=== PATIENT | male | born 1995 | race Two or more races ===

== ENCOUNTER 2019-07-21 23:24 | Inpatient (IN) | payer MEDICAID, SELFPAY ==
[2019-07-21 23:34] VITALS: BP 131/78; PULSE 75; RESP 16; TEMP 37.4; O2SAT 98; BMI 31.8
[2019-07-21 23:50] LABS: Basophils # 0.2 K/mm3 (0-0.2); Basophils % 0.9 % (0.1-2.0); Eosinophils % 0.2 % (0.1-12.0); Hematocrit 48.9 % (42.0-52.0); Hemoglobin 17.4 g/dL (14.1-18.0); Lymphocytes # 1.2 K/mm3 (0.7-4.5); Lymphocytes % 6.8 % (10-50); Mean Corpuscular HGB Conc 35.6 g/dL (31.8-35.4); Mean Corpuscular Volume 87.3 fl (80-94); Microscopic, Urine URINE MICROSCOPIC (MICROSCOPIC); Monocytes % 5.8 % (1.7-9.3); Neutrophils # 14.8 K/mm3 (1.8-7.8); Neutrophils % 86.2 % (37.0-80.0); Platelet Count 228 K/mm3 (142-424); Red Blood Count 5.61 M/mm3 (4.60-6.20); Red Cell Distribution Width 12.9 % (11.5-17.5); White Blood Count 17.2 K/mm3 (4.8-10.8)
[2019-07-21 23:51] LABS: Appearance,Urine CLEAR (Clear); Bilirubin,Urine Negative (Negative); Blood, Urine Negative (Negative); Color,Urine YELLOW (Yellow); Glucose,Urine (UA) Negative (Negative); Ketones,Urine TRACE (Negative); Leukocyte Esterase,Urine Negative (Negative); Nitrate,Urine Negative (Negative); PH,Urine 6.5 (5.0-8.5); Protein,Urine Negative (Negative); Specific Gravity, Urine 1.025 (1.005-1.030); Urobilinogen,Urine 0.2 EU/dl (0.2)
[2019-07-21 23:54] LABS: MANUAL DIFFERENTIAL MANUAL DIFFERENTIAL (MANUAL DIFF)
[2019-07-21 23:58] LABS: Alanine Aminotransferase 49 U/L (12-78); Albumin Level 5.7 g/dl (3.5-5.0); Albumin/Globulin Ratio 1.5 (1.1-1.8); Alkaline Phosphatase 62 U/L (38-126); Amorphous Sediment,Urine Trace /lpf; Amylase 84 U/L (30-110); Anion Gap 16.3 mEq/L (5-15); Aspartate Amino Transferase 36 U/L (17-59); Blood Urea Nitrogen 13 mg/dl (9-20); Calcium 10.3 mg/dl (8.4-10.2); Carbon Dioxide 28 mmol/L (22.0-30.0); Chloride 95 mmol/L (98-107); Creatinine Clearance Estimated 163 mL/min (50-200); Estimated Glomerular Filt Rate 118 ml/min (>60); GFR (African American) 143 ML/MIN (>60); Globulin 3.7 g/dL (1.3-3.2); Glucose 158 mg/dl (74-100); Lipase 45 U/L (23-300); Mucus,Urine 1+ /lpf; Potassium 4.3 mmoL/L (3.5-5.1); Sodium 135 mmol/L (136-145); Total Protein,Serum 9.4 g/dl (6.3-8.2)
[2019-07-22] VITALS (24 sets, daily range): BP systolic 103–145; BP diastolic 50–88; PULSE 85–125; RESP 14–22; TEMP 36.7–37.6; O2SAT 91–100; BMI 28.3
[2019-07-22 00:03] LABS: Lymphocytes % 5 % (10-50); Neutrophils % 83 % (42-76); Platelet Estimate Normal; RBC Morphology Normal; Total Cells Counted 100; Toxic Granulation 1+
--- NOTE | 2019-07-22 00:05 | CT_ITS ---
Procedure: CT ABDOMEN PELVIS W CON Patient Age:24Y CLINICAL INDICATION: right side abd pain Right-sided abdominal pain with nausea and vomiting since 10 a.m. on 07/22/2019 COMPARISON: No exams were available for comparison TECHNIQUE: IV contrast utilized: 75 cc Optiray 350. No oral contrast Helical axial images obtained with axial the sagittal and coronal reformats. All CT scans at the facility use one or more dose reduction, viz: automated exposure control, ma/kV adjustment per patient size (including targeted exams where dose is matched to indication, i.e. head), or iterative reconstruction technique. FINDINGS: Lower thorax: No acute finding minor basilar atelectasis heart normal size ABDOMEN: Liver: No masses or biliary dilatation. Gallbladder: Nondistended. No radio opaque stones. Pancreas: No masses or peripancreatic fluid collections. Spleen: unremarkable Adrenals: Slightly plump left adrenal but no significant masses but or enlargement Kidneys/ureters: unremarkable PELVIS:No free fluid. Minimal prostate. Bladder: Nondistended. No obvious stones or masses. GI tract Appendix: Acute appendicitis findings Distended fluid-filled appendix with periappendiceal inflammation. Distended appendix measuring over 15 mm diameter maximally. Also appendicoliths the most notable clearly within the appendix 8.5 mm a... No evidence of perforation or abscess formation. Stomach unremarkable. Small bowel but there is a few small air-fluid levels unremarkable but there may be slight increased fluid within small bowel but no distension no significant wall thickening Large bowel:: Generous, increased stool is seen throughout the right colon, through hepatic flexure and proximal transverse colon. Mid transverse colon most likely peristalsis and contraction yields the upper normal wall thickness here.. The left colon is fairly empty,. Contains gas with only scant stool . The Peritoneum: No abnormal fluid collections. No free air Lymph nodes: No enlarged lymph nodes apparent. Vasculature: Unremarkable aorta normal caliber. Bones: No acute fracture IMPRESSION: . 1..Acute appendicitis. Distended fluid-filled appendix with periappendiceal inflammation. Also appendicolith noted but no evidence of perforation or abscess formation . No free fluid pelvis but no free air 2. Generous increased stool throughout the right colon and hepatic flexure. This extends up to an area relative narrowing large bowel due to likely likely peristalsis, and contraction of bowel. Image 48.. Dictated by: Beau Drake MD 07/22/2019 16:54 Electronically signed by Beau Drake MD in [place] 07/22/2019 16:54
--- NOTE | 2019-07-22 00:44 | HMH.EDNVD ---
ED Disposition Clinical Impression: Severe sepsis with acute organ dysfunction Acute appendicitis Qualifiers: Acute appendicitis type: unspecified acute appendicitis type Qualified Code(s): K35.80 - Unspecified acute appendicitis Disposition: Admitted As Inpatient Condition on Discharge: Good - Critical Care Critical Care Time: No Attestation: On 07/21/19, the high probability of a clinically significant, sudden or life threatening deterioration of the following system(s) required my full and direct attention, intervention and personal management. The time I documented below is in addition to time spent performing reported procedures but includes the following listed in this critical care notation. Medical Decision Making - Medical Records Medical records reviewed: Yes: I reviewed the patient's medical records. - Arben Inquiry Pt receiving controlled substance: No Vital Signs: 07/21/19 23:34 07/22/19 01:49 Temperature 99.4 F Temperature Source Oral Pulse Rate [Right Brachial] 75 121 H Respiratory Rate 16 18 Blood Pressure [Right Arm] 131/78 131/79 Blood Pressure Mean [Right Arm] 95 96 Blood Pressure Source [Right Arm] Automatic Cuff Blood Pressure Position [Right Arm] Sitting 02 Sat by Pulse Oximetry 98 100 Oxygen Delivery Method Room Air Room Air - Lab Data Lab results reviewed: Yes: I reviewed the patient's lab results. Lab Results 07/21/19 23:45: Urine Color Yellow, Urine Appearance Clear, Urine pH 6.5, Ur Specific [place] 1.025, Urine Protein Negative, Urine Glucose (UA) Negative, Urine Ketones Trace, Urine Blood Negative, Urine Nitrate Negative, Urine Bilirubin Negative, Urine Urobilinogen 0.2, Ur Leukocyte Esterase Negative, Urine WBC 3-5, Amorphous Sediment Trace, Urine Mucus 1+ 07/21/19 23:45: WBC 17.2 H, RBC 5.61, Hgb 17.4, Hct 48.9, MCV 87.3, MCH 31.0, MCHC 35.6 H, RDW 12.9, Plt Count 228, MPV 8.0, Neut % (Auto) 86.2 H, Lymph % (Auto) 6.8 L, [place] % (Auto) 5.8, Eos % (Auto) 0.2, Baso % (Auto) 0.9, Neut # (Auto) 14.8 H, Lymph # (Auto) 1.2, [place] # (Auto) 1.0, Eos # (Auto) 0.0, Baso # (Auto) 0.2, Total Counted 100, Neutrophils % (Manual) 83 H, Band Neutrophils % 12.0 H, Lymphocytes % (Manual) 5 L, Toxic Granulation 1+, Platelet Estimate Normal, RBC Morphology Normal 07/21/19 23:45: Sodium 135 L, Potassium 4.3, Chloride 95 L, Carbon Dioxide 28, Anion Gap 16.3 H, BUN 13, Creatinine 0.80, Estimated Creat Clear 163, Estimated GFR 118, Est GFR ( Amer) 143, Glucose 158 H, Calcium 10.3 H, Total Bilirubin 1.0, AST 36, ALT 49, Alkaline Phosphatase 62, Total Protein 9.4 H, Albumin 5.7 H, Globulin 3.7 H, Albumin/Globulin Ratio 1.5, Amylase 84, Lipase 45 07/22/19 01:40: Lactate 2.9 H Result diagrams: 07/21/19 23:45 07/21/19 23:45 Orders (Tests/Meds): ED MEDICATIONS Generic Name Dose Route Start Last Admin Trade Name Freq PRN Reason Stop Dose Admin Sodium Chloride 1,000 mls @ 999 mls/hr 07/21/19 23:45 07/21/19 23:52 Sod Chlor 0.9% 1000ml Bag IV 07/22/19 00:45 999 mls/hr .[id number] SUSIE Administration Discontinued Medications Generic Name Dose Route Start Last Admin Trade Name Freq PRN Reason Stop Dose Admin Hydromorphone HCl 1 mg 07/22/19 01:41 07/22/19 01:51 Dilaudid 2mg/Ml Syringe IV 07/22/19 01:42 1 mg ONCE ONE Administration Ampicillin Sodium/Sulbactam 100 mls @ 200 mls/hr 07/22/19 01:40 07/22/19 01:51 Sodium 3 gm/ Sodium Chloride IV 07/22/19 01:41 200 mls/hr ONCE ONE Administration Protocol Ioversol 75 ml 07/22/19 00:34 07/22/19 00:36 Rad-Optiray 350 100ml Vial IV 07/22/19 00:35 75 ml ONCE ONE Administration Protocol Ketorolac Tromethamine 30 mg 07/21/19 23:43 07/21/19 23:51 Toradol 30mg/Ml Vial IV 07/21/19 23:44 30 mg ONCE ONE Administration Ondansetron HCl 4 mg 07/21/19 23:43 07/21/19 23:52 Zofran 4mg/2ml Vial IV 07/21/19 23:44 4 mg ONCE ONE Administration Sodium Chloride 10 ml 07/22/19 00:34 07/22/19 00
--- NOTE | 2019-07-22 01:30 | PC.NURSE ---
call received from puma
--- NOTE | 2019-07-22 01:35 | PC.NURSE ---
on phone with dr aguilera.
[2019-07-22 01:58] LABS: Lactic Acid 2.9 mmol/L (0.7-2.1)
--- NOTE | 2019-07-22 02:51 | PC.NURSE ---
PT ARRIVED TO THE FLOOR VIA W/C FROM ED @ 7497.
[2019-07-22 04:36] LABS: Reflex Lactic Add Lactic Reflex
--- NOTE | 2019-07-22 04:58 | PC.NURSE ---
A&O X4. UPON ARRIVING TO UNIT PT STATES HE SPEAKS SOME ARABIC, WITH FIRST LANG BEING YORUBA. WAS ABLE TO VIDEO CHAT WITH MANAGING ATTORNEY FOR PT'S CONVENIENCE. PT ABLE TO ANSWER QUESTIONS APPROPRIATELY. FAMILY REMAINS AT BEDSIDE. BROTHER SPEAKS LITTLE ARABIC WELL. PT REPORTS A HIGH PAIN TOLERANCE. RATING CURRENT PAIN UPON ADMISSION OF RUQ ABD A 3/10 ON PAIN SCALE. PT STATES PAIN < 9/10 ON PAIN SCALE IS TOLERABLE. PT HAS RESTED WELL WITH EYES CLOSED SINCE ARRIVING ON UNIT. NO FURTHER C/O N/V OR ABD PAIN. TOLERATED RA WELL WITH NO COMPLAINTS. INDEPENDENTLY AMB. REMAINS NPO FOR CONSULT THIS AM. VSS. HR REMAINS TACHY, NOTED 106 AT 0300. PT ASYMPTOMATIC AT THIS TIME. REMAINS SAFE. CALL LIGHT WITHIN REACH. WILL CONTINUE TO MONITOR.
[2019-07-22 06:14] LABS: Basophils # 0.3 K/mm3 (0-0.2); Eosinophils % 0.3 % (0.1-12.0); Hematocrit 45.8 % (42.0-52.0); Hemoglobin 16.4 g/dL (14.1-18.0); Lymphocytes # 2.1 K/mm3 (0.7-4.5); Lymphocytes % 14.2 % (10-50); Mean Corpuscular HGB Conc 35.8 g/dL (31.8-35.4); Mean Corpuscular Volume 86.7 fl (80-94); Mean Platelet Volume 7.9 fl (7.4-10.4); Monocytes # 1.1 K/mm3 (0.1-1.0); Monocytes % 7.9 % (1.7-9.3); Neutrophils % 75.6 % (37.0-80.0); Platelet Count 209 K/mm3 (142-424); Red Blood Count 5.28 M/mm3 (4.60-6.20); Red Cell Distribution Width 13.1 % (11.5-17.5); White Blood Count 14.5 K/mm3 (4.8-10.8)
[2019-07-22 06:21] LABS: Chloride 98 mmol/L (98-107); Potassium 3.7 mmoL/L (3.5-5.1); Sodium 137 mmol/L (136-145)
[2019-07-22 06:22] LABS: Lactic Acid Follow Up (RFLX 1) 1.6 mmol/L (0.7-2.1)
[2019-07-22 06:24] LABS: Anion Gap 11.7 mEq/L (5-15); Blood Urea Nitrogen 11 mg/dl (9-20); Calcium 9.4 mg/dl (8.4-10.2); Carbon Dioxide 31 mmol/L (22.0-30.0); Creatinine Clearance Estimated 145 mL/min (50-200); Estimated Glomerular Filt Rate 118 ml/min (>60); GFR (African American) 143 ML/MIN (>60); Glucose 118 mg/dl (74-100)
--- NOTE | 2019-07-22 06:39 | PC.NURSE ---
LATE ENTRY -619 DR. BRITO CALLED AND STATED TO ME THAT HE WAS GOING TO PERFORM TWO SURGERIES THIS MORNING. THAT HE WOULD BE TAKING THE PATIENT IN ROOM 203 FIRST. THEN THE OTHER PATIENT IN ROOM. 212. I WAS ASK TO NOTIFY THE NURSES WHO WAS TAKING CARE OF THE TWO PATIENTS OF HIS PLANS AND TO NOTIFY PROCESS TECHNICIAN TO CALL IN THE TICKET ATTENDANT OR TEAM..SIXTO BROWNING ,SIXTO FINN AND HOUSE ANGELLA PIMENTEL WAS ALL NOTIFIED.
--- NOTE | 2019-07-22 06:45 | HMH.GSHP ---
HPI HPI: Patient is a 24-year-old male who speaks very little [place]. He presented to the emergency department after midnight this morning with ongoing abdominal pain which became more localized to the right lower quadrant. He underwent CT scan which revealed findings consistent with acute appendicitis. [facility] History I have reviewed the patient's past medical history: Yes *Have you ever received a pneumonia vaccine?: No *Have you received a flu vaccine this season?: Yes - *Social History Educational Level: Completed College Alcohol Intake: current Alcohol Intake Frequency:: a few times a week *Occupational Status:: employed Household Members: spouse, family *Travel in the last 8 weeks: None Family Hx:: No significant family history Review of Systems - Review of Systems Review of systems:: unable to obtain - *Neurologic Denies localized weakness, Denies seizure-like activity Meds Home Medications Medication Instructions Recorded Confirmed Type No Known Home Medications 07/21/19 07/21/19 History Allergies Allergy/AdvReac Type Severity Reaction Status Date / Time No Known Allergies Allergy Verified 07/21/19 23:39 Exam Vital signs and Labs for Last 24 Hours: Temp Pulse Resp BP Pulse Ox 98.2 F 106 H 18 138/88 99 07/22/19 02:45 07/22/19 02:45 07/22/19 02:45 07/22/19 02:45 07/22/19 02:45 Laboratory Results - last 24 hr 07/21/19 23:45: Urine Color Yellow, Urine Appearance Clear, Urine pH 6.5, Ur Specific [place] 1.025, Urine Protein Negative, Urine Glucose (UA) Negative, Urine Ketones Trace, Urine Blood Negative, Urine Nitrate Negative, Urine Bilirubin Negative, Urine Urobilinogen 0.2, Ur Leukocyte Esterase Negative, Urine WBC 3-5, Amorphous Sediment Trace, Urine Mucus 1+ 07/21/19 23:45: WBC 17.2 H, RBC 5.61, Hgb 17.4, Hct 48.9, MCV 87.3, MCH 31.0, MCHC 35.6 H, RDW 12.9, Plt Count 228, MPV 8.0, Neut % (Auto) 86.2 H, Lymph % (Auto) 6.8 L, [place] % (Auto) 5.8, Eos % (Auto) 0.2, Baso % (Auto) 0.9, Neut # (Auto) 14.8 H, Lymph # (Auto) 1.2, [place] # (Auto) 1.0, Eos # (Auto) 0.0, Baso # (Auto) 0.2, Total Counted 100, Neutrophils % (Manual) 83 H, Band Neutrophils % 12.0 H, Lymphocytes % (Manual) 5 L, Toxic Granulation 1+, Platelet Estimate Normal, RBC Morphology Normal 07/21/19 23:45: Sodium 135 L, Potassium 4.3, Chloride 95 L, Carbon Dioxide 28, Anion Gap 16.3 H, BUN 13, Creatinine 0.80, Estimated Creat Clear 163, Estimated GFR 118, Est GFR ( Amer) 143, Glucose 158 H, Calcium 10.3 H, Total Bilirubin 1.0, AST 36, ALT 49, Alkaline Phosphatase 62, Total Protein 9.4 H, Albumin 5.7 H, Globulin 3.7 H, Albumin/Globulin Ratio 1.5, Amylase 84, Lipase 45 07/22/19 01:40: Lactate 2.9 H 07/22/19 05:50: WBC 14.5 H, RBC 5.28, Hgb 16.4, Hct 45.8, MCV 86.7, MCH 31.0, MCHC 35.8 H, RDW 13.1, Plt Count 209, MPV 7.9, Neut % (Auto) 75.6, Lymph % (Auto) 14.2, [place] % (Auto) 7.9, Eos % (Auto) 0.3, Baso % (Auto) 2.0, Neut # (Auto) 11.0 H, Lymph # (Auto) 2.1, [place] # (Auto) 1.1 H, Eos # (Auto) 0.0, Baso # (Auto) 0.3 H 07/22/19 05:50: Sodium 137, Potassium 3.7, Chloride 98, Carbon Dioxide 31 H, Anion Gap 11.7, BUN 11, Creatinine 0.80, Estimated Creat Clear 145, Estimated GFR 118, Est GFR ( Amer) 143, Glucose 118 H D, Calcium 9.4 07/22/19 05:50: Lactate 1.6 I & O for Last 24 hours: Intake & Output 07/19/19 07/20/19 07/21/19 07/22/19 11:59 11:59 11:59 11:59 Weight 160 lb 4.417 oz - *Routine HEENT Exam Head: Present: normocephalic Eye: Present: EOMI, PERRL ENT: Present: mucous membranes moist - *Routine Neck Exam Present: supple. Absent: lymphadenopathy - *Routine Respiratory Exam Present: CTA bilaterally - *Routine Cardiovascular Exam Present: RRR - *Routine Abdominal Exam Present: soft, normoactive bowel sounds, tenderness Comments: Tender in the right lower quadrant with voluntary guarding without rebound - *Routine Extremities Exam Absent: cyanosis, clubbing, edema - *Routine Skin
--- NOTE | 2019-07-22 07:08 | P.PN_ITS ---
[facility] Anesthesia Checklist - Patient Identification Patient Identification: Arm Band, Verbal (Name & ) - Structural Data Admitted From: Inpatient Planned Operative Procedure/s: lap appy Consent for Planned Operative Procedure(s) Verified: Yes Verified Documents: History and Physical - NPO Status Verified Time NPO: 00:00 - Additional verifications Patient : No Anesthesia Reactions: No Hx Blood Transfusions: No Blood Transfusion Reaction: No Cephalosporin Allergy: No Previous Colonoscopy: No - Cardiovascular Assessment Heart Sounds: S1 & S2 Pulse Strength: Baseline Pulse Rhythm: Regular Peripheral Edema: No - Airway Assessment C-Spine Mobility Assessed: Yes TMJ Mobility Assessed: Yes Dentition: Good Dentition - Neurological Assessment Level of Consciousness: Awake, Alert, Appropriate Hx Seizures: No Numbness or tingling in extremities: No - Anesthesia Plan Anesthesia Risk discussed: Yes Anesthesia Plan: Verified ASA Class: II Anesthesia Type: General [facility] History I have reviewed the patient's past medical history: Yes *Have you ever received a pneumonia vaccine?: No *Have you received a flu vaccine this season?: Yes Anesthesia experience/problems:: none - *Social History Educational Level: Completed College Alcohol Intake: current Alcohol Intake Frequency:: a few times a week Substance Use Type: other *Occupational Status:: employed Household Members: spouse, family *Travel in the last 8 weeks: None Family Hx:: No significant family history
--- NOTE | 2019-07-22 07:30 | PC.NURSE ---
PATIENT OFF FLOOR FOR SURGERY
--- NOTE | 2019-07-22 07:55 | PC.NURSE ---
At 0620 was called to notify the or crew that is planning to do this pts surgery at 0730. I had armored machine operator to call the on coming anesthesia personnel and or crew at 0700 . Pramod Cleveland,Marga Herring ,and Marga Kim were notified.
--- NOTE | 2019-07-22 08:34 | P.OP_ITS ---
Date of procedure: 07/22/19 Pre-op Diagnosis:: Acute appendicitis Post-op Diagnosis:: Same Procedure performed:: Laparoscopic appendectomy Surgeon:: Kun Goetz MD RN EMPLOYEE HEALTH:: Pramod Cleveland Anesthesia: GETLaura Estimated blood loss (mL): 20 Clinical Note:: Patient is a 24-year-old male who speaks little [place]an. He presented to the emergency department early this morning with abdominal pain localizing to the right lower quadrant. He was found to have an appreciable leukocytosis. CT scan revealed an appendicolith and findings consistent with acute appendicitis. Operative findings:: Patient had a significantly inflamed but nonperforated acute appendicitis. Operative note:: Patient was taken to the operating room. He was given preoperative intravenous antibiotics. In the operating room he was placed in a supine position. General anesthesia was induced. Brady catheter was placed. Abdomen was prepped and draped in the standard surgical fashion. Subumbilical skin incision was made. While performing abdominal wall lift Veress needle was inserted. CO2 pneumoperitoneum was achieved to 15 mmHg. 12 mm optical trocar was inserted at the umbilicus. Intraperitoneal contents were visualized. He had 5 mm trocar inserted in the suprapubic location as well as right upper abdomen. 5 mm 30 degree laparoscope was inserted through the right upper abdominal trocar site. The appendix was identified and found to be significantly acutely inflamed. There were acute inflammatory adhesions to the right lateral pelvic sidewall. Appendix was grasped and retracted anteriorly and superiorly. Mesoappendix was carefully divided with GABRIEL ultrasonic robotic kieran with care taken to coagulate the appendiceal artery and the process. Dissection was carried down to the appendiceal base. At its base the appendix was relatively noninflamed. The appendix was divided at its base with an endoscopic ADÁN linear cutting stapling device. The appendix was placed within an Endo Catch retrieval device and removed from the peritoneal cavity via the umbilical trocar site which required some extension of the fascial incision for delivery of the markedly distended and inflamed appendix. The appendiceal staple line was inspected for integrity and hemostasis which was assured. Limited irrigation was performed of the right lower quadrant and pelvic area and perihepatic space. There appeared to be good hemostasis. Trochars were removed as CO2 pneumoperitoneum was evacuated. Fascia at the umbilicus was closed with several interrupted 0 Vicryl sutures. Local anesthetic was infiltrated. Skin incisions were closed with 4-0 Monocryl in a subcuticular fashion. Steri-Strips and dressings were applied. Condition: stable Disposition: PACU Specimens:: Appendix Complications:: None immediately apparent
--- NOTE | 2019-07-22 08:49 | P.PN_ITS ---
[facility] Anesthesia Record Part I Intake, IV Amount: 700 Estimated blood loss (mL): 10 Urine output (mL): 75 Blood Products used (#): none Blood Pressure: 127/77 SaO2: 96 Pulse Rate: 102 Respiratory Rate: 18 Temperature: 98.7 F Patient is:: Drowsy, Stable Stable to PACU at:: 08:46
--- NOTE | 2019-07-22 09:35 | SUR.PHASEI ---
0850: LANGUAGE LINE CLIENT RELATION SPECIALIST CONTACTED. INFORMED PATIENT SURGERY WAS OVER AND EVERYTHING WENT WELL. PATIENT STATED HE WAS IN NO PAIN. REPORTED BEING COLD. WARM BLANKET APPLIED. PATIENT REPORTS NO OTHER NEEDS AT THIS TIME. 0920: PATIENT REPORTS PAIN PER LANGUAGE LINE CLIENT RELATION SPECIALIST. RATES 5 OUT OF 10. PATIENT MEDICATED PER MAR. INFORMED PATIENT I WOULD BE TAKING HIM TO HIS ROOM IN ABOUT 15MIN AND THAT HE WAS DOING WELL IN THE PACU. ASKED PATIENT IF HE HAD ANY NEEDS AND HE STATED NO.
--- NOTE | 2019-07-22 09:39 | P.PN_ITS ---
[facility] Anesthesia Record Part II Discharge Time: 09:16 Destination: Medical Surgical Department PACU nurse assessment reviewed?: Yes Patient Condition:: Good Anesthesia Complications:: None Swallowing reflex intact?: Yes Cyanosis?: No Blood Pressure: 134/88 Pulse Rate: 98 Temperature: 98.6 F Mental Status: Alert & Oriented Pain level:: 5 Nausea and/or vomitting:: None Intake, IV Amount: 24
--- NOTE | 2019-07-22 09:59 | SUR.PHASEI ---
0836: DETAILED REPORT GIVEN TO Tiffany CERVANTES RN. PATIENT TRANSPORTED TO ROOM 203 PER MYSELF AND Nadeem HENRIQUEZ RN. PATIENT PLACED MASK OVER FACE FOR TRANSPORT. PATIENT HOOKED UP TO DATASCOPE AND VITALS OBTAINED UPON ENTRY TO THE ROOM. O2 SAT 95% ON RA. Tiffany CERVANTES RN AT BEDSIDE. HER AND I ASSESSED ABDOMINAL DRESSINGS TOGETHER. DSG THAT I MARKED UPON MY LAST ASSESSMENT HAD NOT CHANGED. CALL LIGHT GIVEN TO PATIENT. VISITOR AT BEDSIDE. LANGUAGE LINE IPAD GIVEN TO Tiffany CERVANTES RN.
--- NOTE | 2019-07-22 10:33 | HMH.PHAINT ---
MED REC- PATIENT DOES NOT TAKE ANY MEDICATIONS AT HOME. -NIKOLAS JUARES, PRISCILLAD
--- NOTE | 2019-07-22 14:43 | PC.NURSE ---
THIS RN REPORTED POSITIVE BLOOD CULTURES TO DR. BRITO. NO NEW ORDERS AT THIS TIME.
--- NOTE | 2019-07-22 16:12 | PC.NURSE ---
THIS RN PROVIDED STAND BY ASSISTANCE WHILE PATIENT AMBULATED IN HALLWAY. PATIENT TOLERATED WELL. DURING ASSESSMENT THIS RN NOTED BLOODY DRAINAGE FROM UMBILICAL SITE. THIS RN WILL CONTINUE TO MONITOR. THIS RN RECEIVED REPORT OF POSITIVE BLOOD CULTURES. THIS RN REPORTED FINDINGS TO DR. BRITO. NO NEW ORDERS RECEIVED.
[2019-07-22 16:31] LABS: Microscopic,Cath URINE MICROSCOPIC (MICROSCOPIC)
[2019-07-22 16:35] LABS: Appearance,Urine/Cath CLEAR (Clear); Bilirubin,Cath Negative (Negative); Blood, Urine/Cath Negative (Negative); Color,Urine/Cath YELLOW (Yellow); Glucose,Urine/Cath (UA) Negative (Negative); Ketones,Urine/Cath Negative (Negative); Leukocyte Esterase,Cath Negative (Negative); Nitrate,Cath Negative (Negative); PH,Urine/Cath 7.5 (5.0-8.5); Protein,Urine/Cath Negative (Negative); Specific Gravity, Urine/Cath 1.015 (1.005-1.030); Urobilinogen,Cath 0.2 EU/dl (0.2)
[2019-07-22 16:46] LABS: Squamous Epithelial Ur./Cath Occasional #/hpf (0-5)
--- NOTE | 2019-07-22 19:11 | PC.NURSE ---
report given to milly
[2019-07-23 03:38] VITALS: BP 97/59; PULSE 61; RESP 17; TEMP 36.6; O2SAT 100
--- NOTE | 2019-07-23 06:24 | PC.NURSE ---
Pt walked up and down the halls x 3, good long walks. Pt didn't c/o pain only a full feeling, bloated. Abd soft, tender, pt is guarding. Dressing sites unchanged from beginning of shift. Pt denied pain meds with each offering. Slept well after 2229, rhythmic respirations noted, no objective s/s of pain identified with rounds. Brother remains attentive at bedside. Temp of 99.6 @ 2030 was the only abnormal vital sign tonight. Pt is pleasant and cooperative with POC, call light w/i reach, monitoring continues.
--- NOTE | 2019-07-23 06:50 | P.PN_ITS ---
Subjective Narrative: Patient feels well with only minimal soreness. Interestingly he has positive blood cultures. Exam Vital signs and Labs for Last 24 Hours: Temp Pulse Resp BP Pulse Ox 97.9 F 61 17 97/59 L 100 07/23/19 03:38 07/23/19 03:38 07/23/19 03:38 07/23/19 03:38 07/23/19 03:38 Laboratory Results - last 24 hr 07/22/19 : Urine Color Yellow, Urine Appearance Clear, Urine pH 7.5, Ur Specific [place] 1.015, Urine Protein Negative, Urine Glucose (UA) Negative, Urine Ketones Negative, Urine Blood Negative, Urine Nitrate Negative, Urine Bilirubin Negative, Urine Urobilinogen 0.2, Ur Leukocyte Esterase Negative, Urine RBC 3-5, Urine WBC 5-10, Ur Squamous Epith Cells Occasional, Urine Bacteria None I & O for Last 24 hours: Intake & Output 07/20/19 07/21/19 07/22/19 07/23/19 11:59 11:59 11:59 11:59 Intake Total 1024 / 1024 3372 / 3372 Output Total 2100 / 2100 Balance 1024 / 1024 1272 / 1272 Weight 160 lb 4.417 oz Microbiology Reports for the Last 24 Hours: Microbiology 07/22/19 01:40 Blood Blood Culture - Preliminary 07/22/19 01:40 Blood Blood Culture - Preliminary - *Routine Abdominal Exam Present: soft Comments: Sanguinous drainage on umbilical trocar site dressing Progress Note: A&P Assessment and Plan for All Diagnoses:: Continue IV antibiotics for now. Recheck white blood cell count.
[2019-07-23 07:23] LABS: Basophils # 0.1 K/mm3 (0-0.2); Basophils % 0.9 % (0.1-2.0); Eosinophils # 0.1 K/mm3 (0.0-0.4); Eosinophils % 0.5 % (0.1-12.0); Hemoglobin 15.5 g/dL (14.1-18.0); Lymphocytes # 2.7 K/mm3 (0.7-4.5); Lymphocytes % 23.4 % (10-50); Mean Corpuscular Hemoglobin 31.4 pg (27.0-31.2); Mean Corpuscular Volume 87.3 fl (80-94); Monocytes # 0.7 K/mm3 (0.1-1.0); Monocytes % 6.4 % (1.7-9.3); Neutrophils # 7.9 K/mm3 (1.8-7.8); Neutrophils % 68.8 % (37.0-80.0); Platelet Count 195 K/mm3 (142-424); Red Blood Count 4.93 M/mm3 (4.60-6.20); Red Cell Distribution Width 13.4 % (11.5-17.5); White Blood Count 11.5 K/mm3 (4.8-10.8)
[2019-07-23 08:00] VITALS: BP 111/60; PULSE 90; RESP 18; TEMP 36.7; O2SAT 95
[2019-07-23 12:00] VITALS: BP 95/47; PULSE 89; RESP 12; TEMP 37.1; O2SAT 98
--- NOTE | 2019-07-23 12:28 | PC.NURSE ---
Dressing to umbilicus was changed this morning, new telfa and tegaderm placed. Small amount of serous drainage noted at this time. He has ambulated in the halls several times with standby assist from family member. Only complaint is some bloating to right side of abd. Tolerating diet well. No pain medication required. Will continue to monitor.
[2019-07-23 16:00] VITALS: BP 108/65; PULSE 89; RESP 14; TEMP 36.8; O2SAT 99
[2019-07-23 19:51] VITALS: BP 114/58; PULSE 71; RESP 18; TEMP 36.8; O2SAT 96
[2019-07-24 04:00] VITALS: BP 106/58; PULSE 70; RESP 16; TEMP 36.6; O2SAT 98
[2019-07-24 04:50] VITALS: BMI 28.5
--- NOTE | 2019-07-24 05:00 | PC.NURSE ---
Vital signs stable this shift. Pt pointed to right, lateral side of umbilical area as to where he was experiencing the most tenderness. Denied pain medication with each offering. Umbilical dressing with small amount of sero/sang noted, tiny shadowing on upper dressing, no other changes. Afebrile, no s/s of infection identified. Pt questioned when he will be able to return to work, advised him to speak to the doctor today. 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 Pt participates in POC, appreciative of care, presently sleeping, call light w/i reach, monitoring continues.
--- NOTE | 2019-07-24 06:56 | P.PN_ITS ---
Subjective Patient reports: no new complaints, feels better Exam Vital signs and Labs for Last 24 Hours: Temp Pulse Resp BP Pulse Ox 97.8 F 70 16 106/58 L 98 07/24/19 04:00 07/24/19 04:00 07/24/19 04:00 07/24/19 04:00 07/24/19 04:00 Laboratory Results - last 24 hr 07/23/19 07:07: WBC 11.5 H, RBC 4.93, Hgb 15.5, Hct 43.0, MCV 87.3, MCH 31.4 H, MCHC 36.0 H, RDW 13.4, Plt Count 195, MPV 8.0, Neut % (Auto) 68.8, Lymph % (Auto) 23.4, [place] % (Auto) 6.4, Eos % (Auto) 0.5, Baso % (Auto) 0.9, Neut # (Auto) 7.9 H, Lymph # (Auto) 2.7, [place] # (Auto) 0.7, Eos # (Auto) 0.1, Baso # (Auto) 0.1 I & O for Last 24 hours: Intake & Output 07/21/19 07/22/19 07/23/19 07/24/19 11:59 11:59 11:59 11:59 Intake Total 1024 / 1024 3372 / 3372 2638 / 2638 Output Total 2100 / 2100 Balance 1024 / 1024 1272 / 1272 2638 / 2638 Weight 160 lb 4.417 oz 161 lb 6.054 oz Microbiology Reports for the Last 24 Hours: Microbiology 07/22/19 01:40 Blood Blood Culture - Preliminary 07/22/19 01:40 Blood Blood Culture - Preliminary - *Routine Abdominal Exam Present: soft Progress Note: A&P Assessment and Plan for All Diagnoses:: Check CBC. If within reasonable limits probable DC on antibiotics.. Blood cultures possible contaminant.
[2019-07-24 07:32] LABS: Basophils # 0.1 K/mm3 (0-0.2); Basophils % 1.1 % (0.1-2.0); Eosinophils # 0.2 K/mm3 (0.0-0.4); Eosinophils % 2.6 % (0.1-12.0); Hematocrit 44.9 % (42.0-52.0); Lymphocytes # 2.9 K/mm3 (0.7-4.5); Lymphocytes % 37.2 % (10-50); Mean Corpuscular HGB Conc 35.6 g/dL (31.8-35.4); Mean Corpuscular Hemoglobin 32.1 pg (27.0-31.2); Mean Corpuscular Volume 90.2 fl (80-94); Mean Platelet Volume 7.9 fl (7.4-10.4); Monocytes # 0.6 K/mm3 (0.1-1.0); Monocytes % 8.1 % (1.7-9.3); Neutrophils # 3.9 K/mm3 (1.8-7.8); Platelet Count 190 K/mm3 (142-424); Red Blood Count 4.98 M/mm3 (4.60-6.20); Red Cell Distribution Width 12.9 % (11.5-17.5); White Blood Count 7.7 K/mm3 (4.8-10.8)
[2019-07-24 08:00] VITALS: BP 119/64; PULSE 78; RESP 14; RESP 18; TEMP 36.7; O2SAT 96
--- NOTE | 2019-07-24 09:19 | [facility].DCSUM ---
General - General Admission date:: 07/22/19 Discharge date: 07/24/19 HPI HPI: Patient is a 24-year-old male who speaks little [place]. He presented to the emergency department early this morning with abdominal pain localizing to the right lower quadrant. He was found to have an appreciable leukocytosis. CT scan revealed an appendicolith and findings consistent with acute appendicitis. Hospital Course Hospital Course: Patient was admitted and arrangements were made for appendectomy. He underwent laparoscopic appendectomy several hours after admission. He was found to have a significantly inflamed somewhat necrotic but nonperforated acute appendicitis. He was admitted for continued inpatient management. He was continued on Unasyn perioperatively. Given the significance of his inflammatory response characterized by leukocytosis and initial lactate elevation patient remained an inpatient. Also of note, blood cultures returned with gram-positive cocci. Given the nature of the patient's underlying problem and findings intraoperatively however it was felt that this was more likely contaminant. Nonetheless antibiotics were continued. His diet was advanced to full liquid diet. He did have a slight elevation of white blood cell count on postoperative day #1. Given the findings of possible positive blood cultures and persistent leukocytosis he remained an inpatient on Unasyn. He did quite well. Patient was tolerating full liquid diet and ambulating without difficulty. On postoperative day #2 white blood cell count had normalized. Plan was made for discharge home at this time. Given the potential bacteremia and necrosis of the appendix without perforation he was continued on Augmentin for 5 additional days postoperatively. Objective Vital signs: Temp Pulse Resp BP Pulse Ox 98.0 F 78 14 119/64 96 07/24/19 08:00 07/24/19 08:00 07/24/19 08:00 07/24/19 08:00 07/24/19 08:00 Results Labs on day of discharge: Labs from last 24 hours 07/24/19 07:04 WBC 7.7 D RBC 4.98 Hgb 16.0 Hct 44.9 MCV 90.2 MCH 32.1 H MCHC 35.6 H RDW 12.9 Plt Count 190 MPV 7.9 Neut % (Auto) 51.0 Lymph % (Auto) 37.2 [place] % (Auto) 8.1 Eos % (Auto) 2.6 Baso % (Auto) 1.1 Neut # (Auto) 3.9 Lymph # (Auto) 2.9 [place] # (Auto) 0.6 Eos # (Auto) 0.2 Baso # (Auto) 0.1 Preliminary micro results at discharge 07/22/19 01:40 Blood Culture - Preliminary Blood Gram Positive Cocci Gram Positive Cocci#2 07/22/19 01:40 Blood Culture - Preliminary Blood Gram Positive Cocci Discharge Plan - Patient Discharge Instructions ACTIVITY: No heavy lifting DIET: advance to your usual diet Patient Instructions: DI for Appendicitis -- Adult, Sepsis, DI for Surgical Site Infection, Appendectomy -- Laparoscopic Surgery, DI for Sepsis -- Adult - Follow up Plan Follow up with: Kun Goetz MD [Staff Physician] - 2 weeks Disposition: Home, Self-[facility] Medications: Home Medications Medication Instructions Recorded Confirmed Type Amoxicillin/Potassium Clav 1 tab PO Q12H #10 tab 07/24/19 Rx [Augmentin 875-125 Tablet] Hydrocod/Acet 5/325 mg [[place] 1 - 2 tab PO Q6HP PRN #17 tab 07/24/19 Rx 5/325mg tablet] Prescriptions/Medication Reconciliation: New Amoxicillin/Potassium Clav [Augmentin 875-125 Tablet] 1 tab PO Q12H #10 tab Hydrocod/Acet 5/325 mg [[place] 5/325mg tablet] 1 - 2 tab PO Q6HP PRN #17 tab PRN Reason: Moderate Pain Continued No Known Home Medications - Problem Reconciliation Problems Reviewed?: Yes
--- NOTE | 2019-07-24 09:35 | [facility].PHAINT ---
DISCHARGE COUNSELING COMPLETED.
== END 2019-07-24 11:23 | disposition home or self-care (01) | DRG 343 ==
LOC: ER 07-22 01:54 → 2ND 07-23 06:50
PROVIDERS: Admitting Provider Surgery; Emergency Provider Emergency Medicine; Visit Provider Surgery
PROC: 0DTJ4ZZ Resection of Appendix, Percutaneous Endoscopic Approach (ICD-10-PCS; CPT 44970; principal; 2019-07-22 07:30)
DX: K35.80 Unspecified acute appendicitis (principal)
CPT/HCPCS: 44970; 36415; 74177; 80048; 80053; 81001; 82150; 83605; 83690; 85007; 85025; 87040; 87077; 87186; 96365; 96366; 96375; 99284; J2405; Q9967